=== PATIENT | female | born 1960 | race Caucasian/White ===

== ENCOUNTER → 2016-07-18 | Outpatient (CLI) | payer BC | LOC: MC.RAD 05-30 14:40 | DX: Z12.31 Encounter for screening mammogram for malignant neoplasm of breast (principal); N64.89 Other specified disorders of breast ==

== ENCOUNTER → 2017-02-08 | Outpatient (REF) ==
[2017-02-08 11:08] LABS: THYROID STIMULATING HORMONE 2.18 uIU/mL (0.465-4.680)
== END ==
LOC: ZLAB.WCH 10:14
PROVIDERS: Internal Medicine
DX: Z02.89 Encounter for other administrative examinations (principal)

== ENCOUNTER → 2017-07-31 | Outpatient (CLI) | payer BC | LOC: MC.RAD 14:08 | DX: Z12.31 Encounter for screening mammogram for malignant neoplasm of breast (principal) ==

== ENCOUNTER → 2017-08-21 | Outpatient (REF) | LOC: ZLAB.WCH 18:00 | DX: Z01.89 Encounter for other specified special examinations (principal) ==

== ENCOUNTER → 2018-08-09 | Outpatient (REF) ==
[2018-08-09 16:55] LABS: THYROID STIMULATING HORMONE 1.83 uIU/mL (0.465-4.680)
== END ==
LOC: ZLAB.WCH 16:06
PROVIDERS: Internal Medicine
DX: Z01.89 Encounter for other specified special examinations (principal)

== ENCOUNTER → 2018-10-22 | Outpatient (CLI) | payer BC | LOC: MC.RAD 13:27 | DX: Z12.31 Encounter for screening mammogram for malignant neoplasm of breast (principal) ==

== ENCOUNTER → 2020-01-23 | Outpatient (CLI) | payer BC | LOC: MC.RAD 13:16 | DX: Z12.31 Encounter for screening mammogram for malignant neoplasm of breast (principal) ==

== ENCOUNTER → 2021-01-25 | Outpatient (CLI) | payer BC | LOC: MC.RAD 13:57 | DX: Z12.31 Encounter for screening mammogram for malignant neoplasm of breast (principal) ==

== ENCOUNTER → 2021-08-09 | Outpatient (CLI) | payer BC | LOC: MC.RAD 08:43 | DX: N64.4 Mastodynia (principal); N64.59 Other signs and symptoms in breast ==

== ENCOUNTER → 2022-02-07 | Outpatient (CLI) | payer BC | LOC: MC.RAD 12:53 | DX: Z12.31 Encounter for screening mammogram for malignant neoplasm of breast (principal) ==

== ENCOUNTER 2022-10-31 05:22 | Day surgery (SDC) | payer BC ==
[~2022-10-31] VITALS: Ht 170.3 cm; Wt 88.2 kg
[2022-10-31] VITALS (10 sets, daily range): BP systolic 93–125; BP diastolic 58–75; PULSE 54–66; TEMP 97.2–98.5
[2022-10-31] MEDS ORDERED: D3-5050000 IU PO (06:20)
[2022-10-31] MEDS ORDERED: SLOW-MAG71.5 MG PO (06:21)
[2022-10-31] MEDS ORDERED: B-12 250 MCG (06:22)
[2022-10-31] MEDS ORDERED: PHARMASSURE ZIN50 MG PO (06:23)
[2022-10-31] MEDS ORDERED: CALCIUM CITRAT200 M2 PO (06:24)
[2022-10-31] MEDS ORDERED: VITAMINC1000TA (06:25)
[2022-10-31] MEDS ORDERED: ASPIRIN 81M81 MG/TA2 PO (06:26)
[2022-10-31] MEDS ORDERED: MELATONIN ER10 MG PO (06:26)
[2022-10-31 06:28] LABS: BASO % 0.5 % (0.0-2.0); EOS # 0.2 K/mm3 (0.0-0.7); EOS % 3.3 % (0.0-4.0); GRAN # 3.9 K/mm3 (1.4-6.5); GRAN % 63.9 % (42.2-75.2); HEMATOCRIT 41.7 % (37.0-47.0); HEMOGLOBIN 13.3 g/dl (12.5-16.0); LYMPH # 1.4 K/mm3 (1.2-3.4); LYMPH % 23.7 % (20.0-51.0); MEAN CELL VOLUME 89 fl (80.0-100.0); MEAN CORPUSCULAR HEMOGLOBIN 28 pg (27-31); MEAN CORPUSCULAR HGB CONC 32 g/dl (33.0-37.0); MEAN PLATELET VOLUME 9.4 fl (7.4-10.4); MONO # 0.5 K/mm3 (0.1-0.6); MONO % 8.3 % (1.7-9.3); PLATELET COUNT 247 K/mm3 (130-400); RED BLOOD COUNT 4.69 M/mm3 (4.10-5.30); REDCELL DISTRIBUTION WIDTH-CV 13.4 % (11.5-14.5)
[2022-10-31 06:35] LABS: CALCIUM 9.5 mg/dL (8.4-10.2); CREATININE, serum 0.8 mg/dL (0.57-1.11); POTASSIUM 4.1 mmol/L (3.5-4.5)
--- NOTE | 2022-10-31 10:30 | NUR ---
Pt. arrived to the floor from PACU. Pt. is A&OX3, assessment complete. IV to rt. hand patent. Pt. denies pain or other needs, call light within reach.
[2022-11-01 00:09] VITALS: BP 106/58; PULSE 61; TEMP 97.6
[2022-11-01 04:24] VITALS: BP 125/65; PULSE 63; TEMP 98
[2022-11-01 07:26] LABS: HEMATOCRIT 34.9 % (37.0-47.0)
[2022-11-01 07:51] LABS: CALCIUM 8.6 mg/dL (8.4-10.2); CREATININE, serum 0.72 mg/dL (0.57-1.11); POTASSIUM 4.5 mmol/L (3.5-4.5)
[2022-11-01 07:58] VITALS: BP 104/57; PULSE 72; TEMP 97.9
--- NOTE | 2022-11-01 08:52 | NUR ---
LUCINDA met with the patient and her , Kemar ([phone]), to discuss discharge plan. The patient lives in [place] with her . She reports independence with ADLs and has a cane and walker. The patient's PCP is Dr. Theodore Caruso and she obtains her medications from [place] [facility]. The patient does not have a DPOA-HC, but she was interested in obtaining a form. LUCINDA provided. The patient plans to return home with her and receive outpatient PT. She shares that she plans to contact [facility] to set up an appointment. No additional needs at this time. *Discharge plan: home with and outpatient PT*
[2022-11-01] MEDS ORDERED: ELIQUIS 2.5 PO (11:36)
[2022-11-01] MEDS ORDERED: CEPHALEXIN500 M1 PO (11:37)
[2022-11-01] MEDS ORDERED: NORCO 325 MG-51 TAB PO (11:37)
[2022-11-01] MEDS ORDERED: CELEBREX 200MG200 MG PO (11:37)
[2022-11-01 12:42] VITALS: BP 114/65; PULSE 64; TEMP 97.9
--- NOTE | 2022-11-01 12:43 | NUR ---
Initial visit: Paramedic Supervisor stopped by room on rounds. Pt was resting and content with by her side. Pt has no needs right now. Paramedic Supervisor will follow up as needed.
--- NOTE | 2022-11-01 13:44 | NUR ---
DISCHARGE INSTRUCTIONS REVIEWED WITH PT AND . QUESTIONS ANSWERED. PT LEFT UNIT PER WHEEL CHAIR WITH STAFF.
== END 2022-11-01 13:48 | disposition home or self-care (01) ==
LOC: SDCO 05:22 → SURG 10:35 → SDCO 11-01 13:48
PROVIDERS: Nurse Anesthetist, Certified Registered; Physician Assistant
DX: M17.12 Unilateral primary osteoarthritis, left knee (principal); Z86.718 Personal history of other venous thrombosis and embolism; G47.33 Obstructive sleep apnea (adult) (pediatric)
CPT/HCPCS: OP; A9284; C1713; C1776; J0690; J1580; J1885; J2250; J2270; J2405; J2704; J2795; J3010; J7030; J7120

== ENCOUNTER 2023-03-13 13:00 | Outpatient (RCR) | payer BC ==
[~2023-03-13 13:00] MED LIST: ALEVE 220MG220 MG PO; AMBIEN 5MG TABLE5 MG PO; ASPIRIN 81M81 MG/TA2 PO; B-12 250 MCG; CALCIUM CITRAT200 M2 PO; CELEBREX 200MG200 MG PO; CEPHALEXIN500 M1 PO; D3-5050000 IU PO; ELIQUIS 2.5 PO; MELATONIN ER10 MG PO; NORCO 325 MG-51 TAB PO; PHARMASSURE ZIN50 MG PO; SLOW-MAG71.5 MG PO; VITAMINC1000TA
== END 2023-03-25 | disposition home or self-care (01) ==
LOC: MKS.ESL.PT
DX: M17.11 Unilateral primary osteoarthritis, right knee (principal); Z96.651 Presence of right artificial knee joint

== ENCOUNTER → 2024-02-28 | Outpatient (CLI) | payer BC | LOC: COL.RAD 08:59 | DX: Z96.651 Presence of right artificial knee joint (principal) | CPT/HCPCS: A9503-JZ ==

== ENCOUNTER → 2024-04-22 | Outpatient (CLI) | payer BC | LOC: MC.RAD 10:38 | DX: Z12.31 Encounter for screening mammogram for malignant neoplasm of breast (principal) ==